=== PATIENT | male | born 1985 | race African-American/Black ===

== ENCOUNTER 2020-03-30 13:37 | Emergency (ER) | payer OTHER ==
[~2020-03-30] VITALS: Ht 190.5 cm; Wt 99.4 kg
[2020-03-30] MEDS ORDERED: NAPR250T4 PO (13:44)
[2020-03-30] MEDS ORDERED: NITROGLYCERIN 0.4 MG SUBL TABLET SL STA (14:06)
[2020-03-30] MEDS ORDERED: ASPIRIN 81 MG CHEW TABLET PO ONE (14:15)
[2020-03-30 14:16] VITALS: BP 126/76
--- NOTE | 2020-03-30 14:18 | REPVR ---
PROCEDURE INFORMATION: Exam: XR Chest, 2 Views Exam date and time: 03/30/2020 2:04 PM Age: 34 years old Clinical indication: Chest pain TECHNIQUE: Imaging protocol: XR of the chest Views: 2 views. COMPARISON: No relevant prior studies available. FINDINGS: Lungs: Hyperinflation and mild interstitial prominence. No acute airspace disease. Pleural space: No pleural effusion. Heart/Mediastinum: No cardiomegaly. Bones/joints: Unremarkable. IMPRESSION: Hyperinflation , without acute airspace or pleural disease. Electronically signed by: Honorio Franco On 03/30/2020 14:18:33 PM
[2020-03-30 14:20] LABS: BASO % 0.5 % (0.0-1.0); EOS # 0.3 10^3/uL (0.0-0.5); EOS % 3.8 % (0.0-3.0); HEMOGLOBIN 15.1 g/dl (13.5-17.5); LYMPH # 3.2 10^3/uL (1.5-5.0); LYMPH % 40.3 % (24.0-44.0); MEAN CORPUSCULAR HEMOGLOBIN 29.3 pg (27.0-33.0); MEAN CORPUSCULAR HGB CONC 32.8 g/dl (32.0-36.5); MEAN CORPUSCULAR VOLUME 89.1 fl (80.0-96.0); MONO # 1.1 10^3/uL (0.0-0.8); MONO % 13.3 % (0.0-5.0); NEUTROPHILS # 3.3 10^3/uL (1.5-8.5); NEUTROPHILS % 41.8 % (36.0-66.0); PLATELET COUNT, AUTOMATED 282 10^3/uL (150-450); RED BLOOD COUNT 5.16 10^6/uL (4.30-6.10)
[2020-03-30 14:38] LABS: BLOOD UREA NITROGEN 12 MG/DL (7-18); CARBON DIOXIDE LEVEL 28 MEQ/L (21-32); CHLORIDE LEVEL 106 MEQ/L (98-107); CREATININE FOR GFR 1.12 MG/DL (0.70-1.30); GLOMERULAR FILTRATION RATE > 60.0 (>60); GLUCOSE, FASTING 104 MG/DL (70-100); POTASSIUM SERUM 4.9 MEQ/L (3.5-5.1); SODIUM LEVEL 138 MEQ/L (136-145)
[2020-03-30 15:29] LABS: ALBUMIN 3.9 GM/DL (3.2-5.2); ALT/SGPT 47 U/L (12-78); BILIRUBIN,DIRECT < 0.1 MG/DL (0.0-0.2); BILIRUBIN,TOTAL 0.3 MG/DL (0.2-1.0); CK-MB VALUE MASS 1.2 NG/ML (<3.6); CPK CREATINE PHOSPHOKINASE 371 U/L (39-308); LIPASE 86 U/L (73-393); MB/CK RELATIVE INDEX 0.32 (< OR =4); TOTAL PROTEIN 7.7 GM/DL (6.4-8.2); TROPONIN I < 0.02 NG/ML (< 0.10)
[2020-03-30] MEDS ORDERED: ISOVUE-370 76% 100ML VIAL As Ordered ONE (15:59)
--- NOTE | 2020-03-30 16:19 | REPVR ---
PROCEDURE INFORMATION: Exam: CT Angiography Chest With Contrast Exam date and time: 03/30/2020 4:02 PM Age: 34 years old Clinical indication: Chest pain; Additional info: Pleuritic chest pain TECHNIQUE: Imaging protocol: Computed tomographic angiography of the chest with intravenous contrast. 3D rendering (Not supervised by radiologist): MIP and/or 3D reconstructed images were created by the technologist. Radiation optimization: All CT scans at this facility use at least one of these dose optimization techniques: automated exposure control; mA and/or kV adjustment per patient size (includes targeted exams where dose is matched to clinical indication); or iterative reconstruction. Contrast material: ISOVUE 370; Contrast volume: 75 ml; Contrast route: INTRAVENOUS (IV); COMPARISON: CR Chest, 2 view PA, Lat 03/30/2020 2:02 PM FINDINGS: Pulmonary arteries: No pulmonary embolus in the opacified pulmonary arteries. Aorta: Uniform opacification and normal caliber of the thoracic aorta. Lungs: Apical emphysematous change, interstitial prominence, and trace dependent airspace disease. Pleural space: No pleural effusion. Heart: No cardiomegaly. Lymph nodes: No pathologically enlarged lymph nodes. Bones/joints: No acute osseous pathology . Soft tissues: Gynecomastia. IMPRESSION: 1. No pulmonary embolus in the opacified pulmonary arteries. 2. No acute airspace or pleural disease. Electronically signed by: Honorio Franco On 03/30/2020 16:18:46 PM
[2020-03-30 18:02] VITALS: BP 121/77
--- NOTE | 2020-03-31 19:09 | ECGEPIP ---
[facility] - ED Test Date: 2020-03-30 Pat Name: PHUONG CUMMINGS Department: Room: - Gender: Male [employer]visor [employer]: : [id number] Requested By: KELLI Beth Order Number: [id number] Reading MD: Cornelio Mcclure Measurements Intervals [place] Rate: 73 P: 48 RI: 173 QRS: 62 QRSD: 86 T: 37 QT: 341 QTc: 378 Interpretive Statements SINUS RHYTHM INCOMPLETE RIGHT BUNDLE BRANCH BLOCK BENIGN EARLY REPOLARIZATION NO PRIORS FOR COMPARISON Electronically Signed on 03-31-2020 19:09:17 EDT by Cornelio Mcclure
== END 2020-03-30 18:07 | disposition home or self-care (01) ==
LOC: M ED 13:37
DX: R07.9 Chest pain, unspecified (principal); R06.02 Shortness of breath; F17.200 Nicotine dependence, unspecified, uncomplicated; Z82.49 Family history of ischemic heart disease and other diseases of the circulatory system; Z79.1 Long term (current) use of non-steroidal anti-inflammatories (NSAID)
CPT/HCPCS: 36415; 71046; 71275; 80048; 80076; 82550; 82553; 83690; 84484; 85025; 93005; 93041; 94760; 99285; Q9967

== ENCOUNTER → 2020-10-30 | Outpatient (CLI) | payer OTHER ==
[~2020-10-30] MED LIST: NAPR-849 PO
== END ==
LOC: M LABSMTC 08:18
PROVIDERS: ATTEND Pediatrics
DX: Z11.52 Encounter for screening for COVID-19 (principal)

== ENCOUNTER → 2020-11-23 | Outpatient (CLI) | payer OTHER | LOC: M LABSMTC 10:09 | PROVIDERS: ATTEND Pediatrics | DX: Z11.52 Encounter for screening for COVID-19 (principal) ==

== ENCOUNTER → 2021-09-01 | Outpatient (CLI) | payer OTHER ==
[2021-09-01 17:46] LABS: FREE T4 0.85 NG/DL (0.76-1.46); THYROID STIMULATING HORMONE < 0.005 uIU/ML (0.358-3.740)
[2021-09-01 17:48] LABS: TOTAL T3 115.5 NG/DL (60.0-181.0)
== END ==
LOC: M PLALAB 15:21
PROVIDERS: ATTEND Nurse Practitioner Family
DX: E05.00 Thyrotoxicosis with diffuse goiter without thyrotoxic crisis or storm (principal)